=== PATIENT | female | born 1985 ===

== ENCOUNTER 2016-11-22 12:31 | Inpatient (IN) | payer OTHER ==
[~2016-11-22] VITALS: Ht 172.7 cm; Wt 73.1 kg
[2016-11-22 13:15] VITALS: BP 116/70; PULSE 65; TEMP 98.4
[2016-11-22] MEDS ORDERED: CLARITIN 1010 MG/TAB PO (14:17)
[2016-11-22] MEDS ORDERED: FLONASEALLERGY NS (14:18)
[2016-11-22 15:08] VITALS: BP 98/51; PULSE 96; TEMP 98.4
[2016-11-22 18:44] VITALS: BP 120/69; PULSE 84; TEMP 97.6
[2016-11-22 18:47] VITALS: BP 125/70; PULSE 102; TEMP 98.1
[2016-11-22] MEDS ORDERED: NORINYL PO (20:17)
[2016-11-22 21:39] VITALS: BP 118/58; PULSE 89; TEMP 98.9
[2016-11-23] VITALS (11 sets, daily range): BP systolic 113–129; BP diastolic 59–76; PULSE 47–90; TEMP 98.1–98.9
[2016-11-23 07:00] LABS: ADD PATHOLOGY DIFF REVIEW NO
[2016-11-23 07:11] LABS: MEAN CELL VOLUME 80 fl (80.0-100.0); MEAN CORPUSCULAR HGB CONC 33 g/dl (33.0-37.0); MEAN PLATELET VOLUME 11.4 fl (7.4-10.4); PLATELET COUNT 194 K/mm3 (130-400); RED BLOOD COUNT 4.25 M/mm3 (4.10-5.30); REDCELL DISTRIBUTION WIDTH-CV 13.9 % (11.5-14.5); WHITE BLOOD COUNT 5.4 K/mm3 (4.8-10.8)
[2016-11-23 07:17] LABS: HEMATOCRIT 33.9 % (37.0-47.0); HEMOGLOBIN 11.1 g/dl (12.5-16.0); MEAN CORPUSCULAR HEMOGLOBIN 26 pg (27.0-31.0)
[2016-11-23 07:22] LABS: ADJUSTED CALCIUM 8.8 mg/dL (8.4-10.2); ALBUMIN 3.3 gm/dL (3.5-5.0); BILIRUBIN,TOTAL 0.7 mg/dL (0.0-1.0); CALCIUM 8.2 mg/dL (8.4-10.2); CREATININE, serum 0.78 mg/dL (0.52-1.25); POTASSIUM 3.5 mmol/L (3.4-5.0); TOTAL PROTEIN 6.3 gm/dL (6.4-8.2)
[2016-11-23 07:54] LABS: BAND 3 % (0-10); NEUTROPHILS 71 % (42.0-75.2); PLATELET ESTIMATE NORMAL (NORMAL); TOTAL CELLS COUNTED 100
[2016-11-24] VITALS (12 sets, daily range): BP systolic 103–138; BP diastolic 60–87; PULSE 44–72; TEMP 97.4–98.7
[2016-11-24 08:04] LABS: ADJUSTED CALCIUM 8.8 mg/dL (8.4-10.2); ALBUMIN 3.2 gm/dL (3.5-5.0); BILIRUBIN,TOTAL 1.5 mg/dL (0.0-1.0); CALCIUM 8.2 mg/dL (8.4-10.2); CREATININE, serum 0.66 mg/dL (0.52-1.25); POTASSIUM 3.9 mmol/L (3.4-5.0); TOTAL PROTEIN 6.1 gm/dL (6.4-8.2)
[2016-11-25 02:00] VITALS: BP 103/58; PULSE 44; TEMP 97.9
[2016-11-25 05:03] VITALS: BP 95/48; PULSE 60; TEMP 98.6
[2016-11-25 07:42] LABS: BASO % 0.2 % (0.0-2.0); EOS % 0.1 % (0-4.0); GRAN # 8.1 (1.4-6.5); LYMPH % 10.3 % (20.0-51.0); MEAN CELL VOLUME 81 fl (80.0-100.0); MEAN CORPUSCULAR HEMOGLOBIN 26 pg (27.0-31.0); MEAN CORPUSCULAR HGB CONC 33 g/dl (33.0-37.0); MEAN PLATELET VOLUME 12.1 fl (7.4-10.4); MONO # 0.6 (0.1-0.6); PLATELET COUNT 236 K/mm3 (130-400); RED BLOOD COUNT 4.56 M/mm3 (4.10-5.30); REDCELL DISTRIBUTION WIDTH-CV 14.3 % (11.5-14.5); WHITE BLOOD COUNT 9.8 K/mm3 (4.8-10.8)
[2016-11-25 07:43] LABS: HEMATOCRIT 36.9 % (37.0-47.0)
[2016-11-25 07:59] LABS: ALBUMIN 3.7 gm/dL (3.5-5.0); BILIRUBIN,TOTAL 0.3 mg/dL (0.0-1.0); CALCIUM 8.8 mg/dL (8.4-10.2); CREATININE, serum 0.7 mg/dL (0.52-1.25); POTASSIUM 3.9 mmol/L (3.4-5.0)
[2016-11-25 10:04] VITALS: BP 101/53; PULSE 64; TEMP 98
[2016-11-25] MEDS ORDERED: ROXICODONE 55 MG/TAB PO (12:10)
[2016-11-25 14:00] VITALS: BP 105/54; PULSE 70; TEMP 97.7
== END 2016-11-25 17:55 | disposition home or self-care (01) | DRG 417 ==
LOC: SURG 12:31
PROVIDERS: Family Medicine; Internal Medicine; Nurse Practitioner Family; Surgery
PROC: 0FC98ZZ Extirpation of Matter from Common Bile Duct, Via Natural or Artificial Opening Endoscopic (ICD-10-PCS; 2016-11-23)
PROC: 0FT44ZZ Resection of Gallbladder, Percutaneous Endoscopic Approach (ICD-10-PCS; principal; 2016-11-24 13:00)
DX: K80.66 Calculus of gallbladder and bile duct with acute and chronic cholecystitis without obstruction (principal); K85.10 Biliary acute pancreatitis without necrosis or infection; K21.9 Gastro-esophageal reflux disease without esophagitis; K44.9 Diaphragmatic hernia without obstruction or gangrene
CPT/HCPCS: 99222-AI; 99231-AI; 99232-AI; C1769; J1100; J1170; J1885; J1956; J2270; J2300; J2405; J2550; J2704; J2710; J3010; J7030; J7120; Q9967